=== PATIENT | female | born 1955 | race Caucasian/White ===

== ENCOUNTER 2021-06-18 18:13 | Emergency (ER) | payer BC, MEDICARE, SELFPAY ==
--- NOTE | ~2021-06-18 | XR_ITS ---
EXAMINATION: XR chest 2V DATE: 06/18/2021 20:08 INDICATION: Fever. Crackles in the lungs. TECHNIQUE: Frontal and lateral views of the chest were obtained. COMPARISON: Chest 2 views 08/18/2007 FINDINGS: There is mild atelectasis in lingula. No pleural effusion or pneumothorax. The heart size i s normal. IMPRESSION: 1. Mild atelectasis in lingula. Reviewed, dictated and finalized at location A.
[2021-06-18 18:21] VITALS: BP 146/86; PULSE 77; RESP 18; TEMP 37; O2SAT 98
--- NOTE | 2021-06-18 18:24 | ECG_ITS ---
Measurements Intervals [place] Rate: 69 P: 7 ND: 144 QRS: -9 QRSD: 86 T: 7 QT: 360 QTc: 387 Interpretive Statements SINUS RHYTHM VOLTAGE CRITERIA FOR LVH BORDERLINE T WAVE ABNORMALITY- INFERIOR LEADS BASELINE WANDER- V1-V2 BORDERLINE ECG Electronically Signed On 06-18-2021 20:25:08 CDT by Luis Dalal D.O.
[2021-06-18 19:00] VITALS: BP 135/85; PULSE 71; RESP 14; TEMP 37.1; O2SAT 97
--- NOTE | 2021-06-18 19:01 | ED.GENADULT ---
HPI - General Adult General Chief complaint: Unspecified Stated complaint: Fever,Chills since getting Covid Vaccine Time Seen by Provider: 06/18/21 19:00 History of Present Illness HPI narrative: Patient presents with diffuse myalgias. Patient reports she got her Covid vaccine approximately a week ago and then the next day was having body aches and fevers. She thought her symptoms would resolve but they have persisted so she came in for evaluation. She reports her pain is achy, constant no clear aggravating or alleviating factors and there are no clear focality to her pain. She is already been taking Tylenol and ibuprofen but continues to have breakthrough subjective fevers. She reports mild headache but denies cough, congestion, nausea, vomiting Related Data Allergies Allergy/AdvReac Type Severity Reaction Status Date / Time azithromycin Allergy Unknown Unknown Verified 06/18/21 20:11 erythromycin base Allergy Unknown Unknown Verified 06/18/21 20:11 Penicillins Allergy Unknown Unknown Verified 06/18/21 20:11 Review of Systems Review of Systems: CONSTITUTIONAL: Denies fever, chills, or sweats. EYES: Denies visual changes, redness, or discharge. ENT: Denies rhinorrhea, congestion, sore throat, or otalgia. CARDIOVASCULAR: Denies chest pain, palpitations, or edema. RESPIRATORY: Denies cough or dyspnea. GASTROINTESTINAL: Denies abdominal pain, nausea, vomiting, or diarrhea. GENITOURINARY: Denies dysuria or hematuria. SKIN: Denies rash or itching. MUSCULOSKELETAL: Denies back pain, focal joint pain. NEUROLOGIC: Denies headache, numbness, dizziness, or weakness. PSYCHIATRIC: Denies anxiety or depression. All systems reviewed & are unremarkable except as noted in HPI and below Exam Narrative: GENERAL: Well-appearing, well-nourished, and in no acute distress. HEAD: Normocephalic, atraumatic. EYES: PERRLA and EOMI. ENT: Nares clear, no rhinorrhea or epistaxis. Mucous membranes moist. NECK: Supple. No adenopathy or masses. No carotid bruits or JVD CHEST: Mild crackles noted at the right lung base. No respiratory distress. No wheezes rales or rhonchi HEART: Regular rate and rhythm. No murmur heard. Normal peripheral pulses. ABDOMEN: Soft, nontender, nondistended, normal active bowel sounds. EXTREMITIES: Normal range of motion. No edema. SKIN: Warm, dry, no rash. NEURO: No focal deficits. Alert and oriented x3. PSYCH: Normal mood and affect. Course Reevaluation(s) Reevaluation #1: Patient report feeling much improved after fluids and tylenol Date: 06/18/21 Time: 21:14 Vital Signs Vital signs: Vital Signs Temperature 37.0 C 06/18/21 18:21 Pulse Rate 77 06/18/21 18:21 Respiratory Rate 18 06/18/21 18:21 Blood Pressure 146/86 H 06/18/21 18:21 Pulse Oximetry 98 06/18/21 18:21 Temperature 37.1 C 06/18/21 19:00 Pulse Rate 71 06/18/21 19:00 Respiratory Rate 14 06/18/21 19:00 Blood Pressure 135/85 06/18/21 19:00 Pulse Oximetry 97 06/18/21 19:00 Medical Decision Making MDM Narrative Medical decision making narrative: H&P as above, vss, pt looks clinically well, exam with crackles noted in the right lower lung, labs with leukopenia and contaminated urine, img clinically unremarkable, additional labs/img considered, symptomatic relief available as needed, on reevaluation pt continues to looks clinically well. Suspect pneumonia, dns severe sepsis, severe dehydration. plan to tx/monitor as op w/ pcm f/u findings/plan discussed with pt, pt agree/comfortable with plan, return precautions given. COVID precautions given. Vital Signs Vital Signs: Vital Signs Temperature 37.0 C 06/18/21 18:21 Pulse Rate 77 06/18/21 18:21 Respiratory Rate 18 06/18/21 18:21 Blood Pressure 146/86 H 06/18/21 18:21 Pulse Oximetry 98 06/18/21 18:21 Temperature 37.1 C 06/18/21 19:00 Pulse Rate 71 06/18/21 19:00 Respiratory Rate 14 06/18/21 19:00 Blood Pressure 135/85 06/18/21 19:00 Pulse Oximetr
[2021-06-18 20:27] LABS: Basophils Percent Auto 0.4 % (0.2-1.2); Eosinophils Percent Auto 0.4 % (0-4.4); Hematocrit 38.8 % (37.0-47.0); Hemoglobin 13.2 g/dL (12.0-15.0); Lymphocytes Absolute Auto 0.95 K/mm3 (0.9-3.2); Lymphocytes Percent Auto 38.8 % (18.3-44.2); Mean Corpuscular Hemoglobin 28.8 pg (26-34); Mean Corpuscular Volume 84.5 fl (80-100); Mean Platelet Volume 10.4 fl (7.4-10.4); Monocytes Absolute Auto 0.2 K/mm3 (0.1-0.6); Monocytes Percent Auto 8.6 % (2.6-8.5); Neutrophils Absolute Auto 1.3 K/mm3 (1.3-6.7); Neutrophils Percent Auto 51.8 % (45.5-73.1); Platelet Count Result 113 k/mm3 (150-375); Red Blood Count 4.59 M/mm3 (4.2-5.4); Red Cell Distribution Width 13.1 % (11.5-14.5); White Blood Count 2.5 K/mm3 (4.5-10.0)
[2021-06-18 20:37] LABS: Alanine Aminotransferase 15 U/L (4-35); Albumin Level 4.2 g/dL (3.5-5.1); Alkaline Phosphatase 62 U/L (38-126); Anion Gap 10 mmol/L (8-16); Aspartate Amino Transferase 29 U/L (14-36); Bilirubin,Total 0.4 mg/dL (0.2-1.3); Blood Urea Nitrogen 18 mg/dL (7-17); Calcium 8.4 mg/dL (8.4-10.2); Carbon Dioxide 24 mmol/L (22-30); Chloride 103 mmol/L (98-107); Estimated CRCL calculation 55 ml/min; Estimated Glomerular Filt Rate 56; Glucose 95 mg/dL (65-110); Potassium 3.6 mmol/L (3.4-5.0); Sodium 137 mmol/L (137-145)
[2021-06-18] MEDS: SODIUM CHLORIDE 0.9% IV 1,000 ML 999 ML IV CONT (20:38)
[2021-06-18] MEDS: ACETAMINOPHEN 500 MG TABLET 1000 MG PO (20:38)
[2021-06-18 20:49] LABS: Troponin I < 0.012 ng/mL (0.000-0.034)
[2021-06-18 21:24] LABS: Add Urine Microscopic? YES; Appearance Urine Clear (Clear); Bilirubin Urine Negative (Negative); Blood Urine Negative (Negative); Color Urine Yellow (Yellow); Glucose Urine UA Negative (Negative); Ketones Urine Negative (Negative); Leukocyte Esterase Ur Trace LEU/UL (Negative); Mucus Urine Heavy /lpf; Nitrate Urine Negative (Negative); Protein Urine 1+ mg/dL (Negative); RBC Urine 0-2 /hpf (0-2); Specific Grav Ur 1.026 (1.001-1.035); Squamous Epithelial Cell Urine Moderate /hpf (Few)
[2021-06-19 18:07] LABS: SARS-CoV-2 RNA PCR Positive
== END 2021-06-18 21:46 | disposition home or self-care (01) ==
PROVIDERS: Emergency Provider Emergency Medicine; PCP Internal Medicine
DX: U07.1 COVID-19 (principal); J12.82 Pneumonia due to coronavirus disease 2019
CPT/HCPCS: 36415; 71046; 80053; 81001; 84484; 85025; 93005; 96360; 99284; A9270; C9803; J7030; U0003; U0005

== ENCOUNTER 2021-06-22 14:40 | Emergency (ER) | payer BC, MEDICARE, SELFPAY ==
--- NOTE | ~2021-06-22 | XR_ITS ---
EXAMINATION: XR chest 1V portable DATE: 06/22/2021 15:11 INDICATION: Dyspnea. Cough. COVID-19 pneumonia. TECHNIQUE: A single frontal view of the chest was obtained. COMPARISON: Chest 2 views 07/15/2021 FINDINGS: There are mild airspace opacities in left lower lung zone. No pleural effusion or pneumotho rax. The heart size is normal. IMPRESSION: 1. Worsened mild airspace opacities in left lower lung zone, consistent with atelectasis versus pneum onia. Reviewed, dictated and finalized at location A. IMPRESSION: 1. Worsened mild airspace opacities in left lower lung zone, consistent with at electasis versus pneumonia.
--- NOTE | ~2021-06-22 | CT_ITS ---
EXAMINATION: CTA chest PE protocol DATE: 06/22/2021 18:34 INDICATION: Shortness of breath. COVID-19 positive. TECHNIQUE: Computed tomography angiography (CTA) of the chest was performed with 100 mL Omnipaque-350 intravenous contrast timed to evaluate the pulmonary arteries. Coronal maximum intensity projection 3D-reconstructions were created by the technologist. Automated exposure control and iterative reconst ruction technique were employed. The dose-length product was 548.70 mGy-cm. COMPARISON: Chest CT 08/18/2007 FINDINGS: There are patchy groundglass opacities in the upper lobes and right middle lobe. There are patchy groundglass and airspace opacities in the lower lobes. No pleural effusion. There is left atri al enlargement of the heart. There is no pulmonary embolus. There is mild right hilar lymphadenopathy . There is mild thoracic spondylosis. There is a hemangioma in T11 vertebral body. IMPRESSION: 1. No pulmonary embolus. 2. Diffuse lung disease, consistent with COVID-19 pneumonia. 3. Mild right hilar lymphadenopathy, likely reactive. Reviewed, dictated and finalized at location A.
[2021-06-22 14:47] VITALS: BP 138/80; PULSE 79; RESP 18; TEMP 37.6; O2SAT 97
[2021-06-22 14:59] LABS: Hematocrit 40.2 % (37.0-47.0); Hemoglobin 13.6 g/dL (12.0-15.0); Immature Granulocyte Absolute 0.01 K/mm3 (0.00-0.031); Immature Granulocyte Percent A 0.4 % (0-0.5); Lymphocytes Absolute Auto 0.75 K/mm3 (0.9-3.2); Lymphocytes Percent Auto 27.9 % (18.3-44.2); Mean Corpuscular HGB Conc 33.8 g/dl (32-36); Mean Corpuscular Hemoglobin 28.4 pg (26-34); Mean Corpuscular Volume 83.9 fl (80-100); Mean Platelet Volume 9.7 fl (7.4-10.4); Monocytes Absolute Auto 0.3 K/mm3 (0.1-0.6); Monocytes Percent Auto 9.3 % (2.6-8.5); Neutrophils Absolute Auto 1.7 K/mm3 (1.3-6.7); Neutrophils Percent Auto 62.4 % (45.5-73.1); Platelet Count Result 153 k/mm3 (150-375); Red Blood Count 4.79 M/mm3 (4.2-5.4); Red Cell Distribution Width 13.1 % (11.5-14.5); White Blood Count 2.7 K/mm3 (4.5-10.0)
[2021-06-22 15:27] LABS: Anion Gap 11 mmol/L (8-16); Blood Urea Nitrogen 14 mg/dL (7-17); Calcium 8.5 mg/dL (8.4-10.2); Carbon Dioxide 24 mmol/L (22-30); Chloride 99 mmol/L (98-107); Estimated CRCL calculation 61 ml/min; Estimated Glomerular Filt Rate > 60; Glucose 103 mg/dL (65-110); Potassium 3.5 mmol/L (3.4-5.0); Sodium 134 mmol/L (137-145)
--- NOTE | 2021-06-22 16:21 | ECG_ITS ---
Measurements Intervals [place] Rate: 72 P: 41 MN: 144 QRS: 8 QRSD: 90 T: 12 QT: 393 QTc: 431 Interpretive Statements SINUS RHYTHM BASELINE ARTIFACT- II, III, AVF, V1 NORMAL ECG Electronically Signed On 06-22-2021 16:58:25 CDT by Luis Dalal D.O.
--- NOTE | 2021-06-22 16:24 | ED.GENADULT ---
HPI - General Adult General Chief complaint: Shortness of Breath/Dyspnea Stated complaint: COVID+/ NOT FEELING WELL. Time Seen by Provider: 06/22/21 15:02 Source: patient Mode of arrival: ambulatory Limitations: no limitations History of Present Illness HPI narrative: Patient presents for evaluation of multiple complaints after recent diagnosis of COVID. She states she received her 1st Pfizer COVID vaccine on June 11. The following day she developed fever and headache. She states temperature at that time was 103.0 F. She states she was experiencing sharp pains in left occipital region. She has been under the care of neurology at [facility] after she developed sudden onset right lower extremity weakness one year ago. She has undergone a plethora of tests and states neurology indicated that she has some type of neuromuscular disorder. Her father has ALS and she states that she saw an ALS specialist at [facility] and was told that she does not have ALS. She was scheduled to have LP this coming Thursday. She contacted her neurologist last week and they provided her with a script for gabapentin. She has progressively worsened since the time of symptom onset last week. She came to the ER on Thursday of this week and states she tested positive for COVID. She was given a script for levaquin, which she has taken as directed. She states she continues to have fever, headaches, and now has nausea, vomiting, abdominal cramping, shortness of breath with exertion, nonproductive cough, body aches, diarrhea. She has felt as though she may pass out while at home and states her generalized weakness prompted her to seek medical attention at this time. No personal or family hx of VTE. She does not smoke. She has a history of reactive airway disease. Related Data Allergies Allergy/AdvReac Type Severity Reaction Status Date / Time azithromycin Allergy Unknown Unknown Verified 06/18/21 20:11 erythromycin base Allergy Unknown Unknown Verified 06/18/21 20:11 Penicillins Allergy Unknown Unknown Verified 06/18/21 20:11 Review of Systems Review of Systems: CONSTITUTIONAL: Reports fever and fatigue Denies chills EYES: Denies visual changes, redness, or discharge. ENT: Denies rhinorrhea, congestion, sore throat, or otalgia. CARDIOVASCULAR: Denies chest pain, palpitations, or edema. RESPIRATORY: Reports nonproductive cough with shortness of breath GASTROINTESTINAL: Reports nausea, vomiting, diarrhea and abdominal cramping GENITOURINARY: Denies dysuria or hematuria. SKIN: Denies rash or itching. MUSCULOSKELETAL: Reports joint pain. Denies back pain NEUROLOGIC: Reports headache and generalized weakness PSYCHIATRIC: Denies anxiety or depression. [facility] Past Medical History Medical History Depression Neuromuscular disorder Reactive airway disease Thyroid disease Surgical History Surgical History History of Family History Family History Father ALS (amyotrophic lateral sclerosis) Social History Social History Smoking status: Never smoker Alcohol intake: current Alcohol use details: social Substance use: never Living arrangements: alone Gender identity (if verbalized by the patient): Female Spiritual care concerns: No Exam Narrative: GENERAL: Well-appearing, well-nourished, and in no acute distress. HEAD: Normocephalic, atraumatic. EYES: PERRLA and EOMI. ENT: Nares clear, no rhinorrhea or epistaxis. Mucous membranes moist. Oropharynx without tonsillar hypertrophy exudate or other lesions. Bilateral TMs pearly kaur nonbulging NECK: Supple. No adenopathy or masses. No carotid bruits or JVD CHEST: Cough noted on exam. Clear to auscultation. No respiratory distress. No wheezes rales or rhonchi HEAR
[2021-06-22] MEDS: SODIUM CHLORIDE 0.9% IV 1,000 ML 999 ML IV CONT (16:38)
[2021-06-22 18:09] LABS: Lactic Acid Reflex 0.7 mmol/L (0.7-2.1)
[2021-06-22 18:10] LABS: Alanine Aminotransferase 19 U/L (4-35); Albumin Level 3.7 g/dL (3.5-5.1); Alkaline Phosphatase 61 U/L (38-126); Aspartate Amino Transferase 33 U/L (14-36); Bilirubin,Total 0.3 mg/dL (0.2-1.3); INR 0.9; Prothrombin Time 11.7 Seconds (11.1-14.7)
[2021-06-22 18:13] LABS: D Dimer 0.51 ug/mL (<0.48)
[2021-06-22 18:22] LABS: Troponin I < 0.012 ng/mL (0.000-0.034)
[2021-06-22 18:53] VITALS: BP 154/92; PULSE 84; RESP 18; O2SAT 100
== END 2021-06-22 19:35 | disposition home or self-care (01) ==
PROVIDERS: Emergency Medicine; Emergency Provider Nurse Practitioner; PCP Internal Medicine
DX: U07.1 COVID-19 (principal); J45.909 Unspecified asthma, uncomplicated; G70.9 Myoneural disorder, unspecified; E07.9 Disorder of thyroid, unspecified; R91.8 Other nonspecific abnormal finding of lung field
CPT/HCPCS: 36415; 71045; 71275; 80048; 80076; 83605; 84484; 85025; 85380; 85610; 85730; 93005; 96360; 99284; J7030; Q9967